=== PATIENT | female | born 1930 | race Caucasian/White ===

== ENCOUNTER 2017-10-27 15:35 | Inpatient (IN) | payer MEDICAID, MEDICARE ==
[~2017-10-27] VITALS: Ht 154.9 cm; Wt 59.0 kg
[2017-10-27] VITALS (10 sets, daily range): BP systolic 59–163; BP diastolic 12–84
--- NOTE | 2017-10-27 15:39 | NUR ---
BBRA 60 FROM [facility] FOR LOW O2 SAT AT LOW 80'S. BS IN FIELD HI
[2017-10-27] MEDS ORDERED: IV NS 0.9% 1,000 ML IV ONE (16:00)
[2017-10-27] MEDS ORDERED: IV NS 0.9% 1,000 ML BAG IV ONE (16:00)
[2017-10-27] MEDS ORDERED: BISA10SU8 RC (16:02)
[2017-10-27] MEDS ORDERED: MULT-447 PO (16:02)
[2017-10-27] MEDS ORDERED: LORA0.5T PO (16:02)
[2017-10-27] MEDS ORDERED: ACET-868 PO (16:02)
[2017-10-27] MEDS ORDERED: OLAN5TAB3 PO (16:02)
[2017-10-27] MEDS ORDERED: METF850T2 PO (16:02)
[2017-10-27] MEDS ORDERED: ATOR10TA PO (16:02)
[2017-10-27] MEDS ORDERED: NA P133E RC (16:02)
[2017-10-27] MEDS ORDERED: ASPI-1169 PO (16:02)
[2017-10-27] MEDS ORDERED: LEVO100T9 PO (16:02)
[2017-10-27] MEDS ORDERED: PANT40TA2 PO (16:02)
[2017-10-27] MEDS ORDERED: MAGN400O6 PO (16:02)
[2017-10-27] MEDS ORDERED: AMIN30LI4 PO (16:02)
[2017-10-27] MEDS ORDERED: ACET-2605 PO (16:02)
[2017-10-27 16:08] LABS: INR 1.2 (0.87-1.13)
[2017-10-27 16:20] LABS: HEMATOCRIT 27 % (33-45); HEMOGLOBIN 8.5 g/dL (11.5-14.8); LYMPHOCYTES # (AUTO) 1.1 /CMM (0.8-4.8); MEAN CORPUSCULAR HEMOGLOBIN 24 PG (26.0-33.0); MEAN CORPUSCULAR HGB CONC 32 g/dl (31.0-36.0); MEAN CORPUSCULAR VOLUME 76 fL (82-100); MONOCYTES # (AUTO) 0.5 /CMM (0.1-1.30); MONOCYTES % (AUTO) 1.8 % (2.0-12.0); NEUTROPHILS # (AUTO) 26.4 /CMM (1.8-8.9); NEUTROPHILS % (AUTO) 94.2 % (43.0-81.0); PLATELET COUNT (AUTO) 521 /CMM (150-450); RDW COEFFICIENT OF VARIATION 15.4 (11.5-15.0); RED BLOOD CELL COUNT(AUTO) 3.52 MIL/uL (4.0-5.2)
[2017-10-27 16:26] LABS: ALANINE AMINOTRANSFERASE 25 U/L (12-78); ALBUMIN 1.6 g/dL (3.4-5.0); ALKALINE PHOSPHATASE 130 U/L (46-116); ASPARTATE AMINOTRANSFERASE 53 U/L (15-37); BILIRUBIN,DIRECT 0.1 mg/dL (0.0-0.2); BILIRUBIN,TOTAL 0.2 mg/dL (0.2-1.0); CALCIUM, SERUM 9.1 mg/dL (8.5-10.1); CARBON DIOXIDE 20 mmol/L (21-32); CHLORIDE 107 mmol/L (98-107); CREATININE 1.4 mg/dL (0.6-1.3); POTASSIUM 5.6 mmol/L (3.5-5.1); SODIUM SERUM 138 mmol/L (136-145); TOTAL PROTEIN, SERUM 7.7 g/dL (6.4-8.2); UREA NITROGEN, BLOOD 73 mg/dL (7-18)
[2017-10-27 16:28] LABS: GLUCOSE 457 mg/dL (74-106)
[2017-10-27] MEDS ORDERED: ASPIRIN 300 MG/SUPP.RECT RC ONE ×2 (16:30→16:59)
[2017-10-27] MEDS ORDERED: LEVOFLOXACIN 750 MG /D5W 150ML PIGGYBACK IV ONE (16:30)
[2017-10-27] MEDS ORDERED: VANCOMYCIN 1 GM in IV D5W 250 ML IV ONE (16:30)
--- NOTE | 2017-10-27 16:36 | NUR ---
BIPAP 15/5 FIO2 50 %
--- NOTE | 2017-10-27 16:40 | NUR ---
DANIELS CATH FR [address] STRANGE
--- NOTE | 2017-10-27 16:40 | NUR ---
URINE SAMPLE COLLECTED SENT TO LAB
[2017-10-27 16:54] LABS: APPEARANCE,URINE Cloudy (CLEAR); BILIRUBIN,URINE Negative (NEGATIVE); BLOOD, URINE Small Ery/uL (NEGATIVE); COLOR,URINE Yellow (YELLOW); KETONES,URINE Negative (NEGATIVE); LEUKOCYTE ESTERASE ,URINE Negative (NEGATIVE); NITRITE, URINE Negative (NEGATIVE); PROTEIN,URINE 30 mg/dl (NEGATIVE); UGLUCOSE Negative (NEGATIVE); UROBILINOGEN,URINE 0.2 EU/dL (0.2)
[2017-10-27 16:57] LABS: BACTERIA,URINE Rare /HPF (None Seen); SQUAMOUS EPITHELIAL CELL,UR Few /HPF (None Seen); WBC,URINE 0-2 /HPF (0-3)
[2017-10-27] MEDS ORDERED: LEVOFLOXACIN 750 MG /D5W 150ML 150 ML IV ONE (16:58)
--- NOTE | 2017-10-27 17:00 | NUR ---
BED 114-2
--- NOTE | 2017-10-27 17:19 | NUR ---
rt note pt brought in by EMS on 15lpm non rebreather. pt had notable increased WOB. pt placed on bipap per dr torrez order. on Bipap, pt appears to be comfortable at this time. will continue to monitor. alarms are set per policy and audible.
--- NOTE | 2017-10-27 17:49 | NUR ---
gave report to dioni bustillo tele room 114-2 admitting dx sob pna greg blue np
[2017-10-27 17:50] LABS: BAND % (MANUAL) 2 % (0.0-5.0); LYMPHOCYTES % (MANUAL) 3 % (16-48); MONOCYTES % (MANUAL) 1 % (0-11.0); NEUTROPHILS % (MANUAL) 94 (42-76)
[2017-10-27] MEDS ORDERED: ALBUTEROL FS 2.5 MG/0.5 ML VIAL.NEB NEB ONE (18:00)
[2017-10-27] MEDS ORDERED: ACETAMINOPHEN 650 MG/SUPP.RECT RC PRN (18:00)
[2017-10-27] MEDS ORDERED: DEXTROSE 50%-WATER 50 ML DISP.SYRIN IV PRN (18:00)
[2017-10-27] MEDS ORDERED: PIPERACILLIN /TAZOBACTAM 3.375 G in IV D5W 50 ML IV SCH (18:00)
[2017-10-27 18:33] LABS: MAGNESIUM 1.4 mg/dL (1.8-2.4); PHOSPHORUS 3.8 mg/dL (2.5-4.9)
--- NOTE | 2017-10-27 18:38 | NUR ---
GAVE REPORT TO NICOLÁS RN ROOM 261 ICU ADMITTING DANDRE ZAYAS DX SEPTIC SHOCK
[2017-10-27] MEDS ORDERED: FEE PK DOSING 1 MIN EA MC ONE (18:49)
--- NOTE | 2017-10-27 19:05 | NUR ---
ICU/RN: RECEIVED PT FROM ER. RECEIVED REPORT FROM GAYE YOUNG. PT TRANSPORTED VIA GURNEY, ON BIPAP WITH SETTINGS ORDERED,MAINTAINING 02 SAT >95%. PT CONFUSED, FOLLOWING SIMPLE COMMANDS. PIV'S PATENT AND INTACT, NO S/S OF INFECTION OR INFILTRATION INFUSING. DANIELS CATH IN PLACE, DRAINING YELLOW URINE. REPORT ENDORSED TO NIGHT NURSE FABY. BED IN LOW POSITION, SIDE RAILS UP, CALL LIGHT WITHIN REACH, BED ALARM ON.
[2017-10-27 19:40] LABS: ABG BASE EXCESS -8.2 mmol/L; ABG OXYGEN SATURATION 94.6 % (92.0-98.5); ABG PCO2 30.5 mmHg (35.0-45.0); ABG PH 7.352 (7.350-7.450); ABG PO2 80.1 mmHg (75.0-100.0); AaDO2 242.1 mmHg; COHb 2.1 % (0.5-1.5); MetHb 0.3 % (0.0-1.5); O2Hb 92.3 % (94.0-97.0); SITE, ABG Left Radial; VENT MODE, BG Bipap 15/5 50% BR 12
[2017-10-27] MEDS: BLOOD SUGAR DIAGNOSTIC 1 EACH STRIP IN SCH (19:59)
[2017-10-27] MEDS: INSULIN REGULAR, HUMAN 100 UNIT/ML 3 ML VIAL SQ PRN (20:07)
[2017-10-27] MEDS: HEPARIN SODIUM, PORCINE 5000 UNITS/1 ML VIAL SQ SCH (20:34)
[2017-10-27] MEDS: MORPHINE SULFATE INJ 4 MG/ML DISP.SYRIN IV PRN (20:44)
[2017-10-27] MEDS: IV NS 0.9% 1,000 ML IV PRN (21:00)
--- NOTE | 2017-10-27 21:35 | NUR ---
PT RCVD ON BIPAP 15/5, RATE OF 12, 50% VENT ALARM WORKING AND AUDIBLE, VENT PLUGGED INTO RED OUTLET. AMBU BAG AT BEDSIDE. WILL CONTINUE TO MONITOR THE PATIENT.
[2017-10-28] VITALS (37 sets, daily range): BP systolic 100–144; BP diastolic 40–98
[2017-10-28 00:43] LABS: CARBON DIOXIDE 20 mmol/L (21-32); CHLORIDE 114 mmol/L (98-107); GLUCOSE 172 mg/dL (74-106); POTASSIUM 5.6 mmol/L (3.5-5.1); SODIUM SERUM 144 mmol/L (136-145); UREA NITROGEN, BLOOD 55 mg/dL (7-18)
[2017-10-28] MEDS: BLOOD SUGAR DIAGNOSTIC 1 EACH STRIP IN SCH ×5 (00:54→23:40)
[2017-10-28] MEDS: INSULIN REGULAR, HUMAN 100 UNIT/ML 3 ML VIAL SQ PRN ×5 (00:56→23:41)
--- NOTE | 2017-10-28 06:49 | NUR ---
RN NOTE RECEIVED PT IN NO ACUTE DISTRESS IN BED. PT REMAINS IN NO ACUTE DISTRESS. PT DID NOT HAVE ANY SIGNIFICANT CHANGE IN CONDITION DURING SHIFT. ALL NEEDS MET, ALL ORDERS CARRIED OUT. IV SITE CHANGED TO LEFT EJ AND NS CONTINUED @ 75ML/HR. PT MONITORED FOR FLUID OVERLOAD. NO CHANGES. PT TOLERATED BIPAP WITH O2 SAT @ 95-99%. PT SHOWS NO S/S OF PAIN AT THIS TIME AND IS AFEBRILE. WILL ENDORSE CARE TO AM RN FOR CONTINUITY OF CARE.
--- NOTE | 2017-10-28 07:10 | NUR ---
INVOICING SPECIALIST INITIAL NOTES: REC'D PT ASLEEP ON BED, NOT IN ANY DISTRESS, AWAKES BY CALLING HER NAME, A/O X 1-2 W/ PERIODS ON CONFUSION. ON BIPAP, SATURATING AT 99%, TACHYPNEIC. ON TELEMONITOR, SR W/ HR 96 BPM. HAS IV ON L EJ G20, PL, PATENT & INTACT W/ NO S/SX OF INFECTION/INFILTRATION NOTED, ON CONT IVF . HAS FC PATENT & INTACT DRAINING TO ADEQUATE URINE OUTPUT. PROVIDED COMFORT & SAFETY MEASURES. BED KEPT LOW & IN LOCKED POS. CALL LIGHT PLACED W/IN REACH. WILL CONTINUE TO MONITOR AND ATTEND PT'S NEEDS.
[2017-10-28] MEDS: ASPIRIN 325 MG TABLET PO SCH (09:00)
[2017-10-28 09:12] LABS: BASOPHILS % (AUTO) 0.1 % (0.0-2.0); HEMATOCRIT 24 % (33-45); HEMOGLOBIN 7.5 g/dL (11.5-14.8); LYMPHOCYTES # (AUTO) 1.2 /CMM (0.8-4.8); LYMPHOCYTES % (AUTO) 6.2 % (20.0-44.0); MEAN CORPUSCULAR HEMOGLOBIN 25 PG (26.0-33.0); MEAN CORPUSCULAR HGB CONC 32 g/dl (31.0-36.0); MEAN CORPUSCULAR VOLUME 77 fL (82-100); MONOCYTES % (AUTO) 4.9 % (2.0-12.0); NEUTROPHILS # (AUTO) 17.6 /CMM (1.8-8.9); NEUTROPHILS % (AUTO) 88.8 % (43.0-81.0); PLATELET COUNT (AUTO) 406 /CMM (150-450); RDW COEFFICIENT OF VARIATION 15.4 (11.5-15.0); RED BLOOD CELL COUNT(AUTO) 3.05 MIL/uL (4.0-5.2); WHITE BLOOD COUNT (AUTO) 19.8 K/uL (4.3-11.0)
[2017-10-28] MEDS: HEPARIN SODIUM, PORCINE 5000 UNITS/1 ML VIAL SQ SCH ×2 (09:14→20:44)
[2017-10-28] MEDS: IV NS 0.9% 1,000 ML IV PRN (10:30)
--- NOTE | 2017-10-28 10:48 | NUR ---
RN NOTES: PT SEEN & EXAMINED BY DR. NASH W/ NO NEW ORDERS. ABG RESULTS REVIEWED.
[2017-10-28 11:32] LABS: MAGNESIUM 1.3 mg/dL (1.8-2.4); PHOSPHORUS 2.7 mg/dL (2.5-4.9)
--- NOTE | 2017-10-28 11:35 | NUR ---
GAYE NOTES: PT SEEN & EXAMINED BY CHANA AMOS.
[2017-10-28] MEDS ORDERED: DEXTROSE 50%-WATER 50 ML DISP.SYRIN IVP ONE (12:00)
[2017-10-28] MEDS ORDERED: Calcium Gluconate 0.465 MEQ/ML VIAL IV ONE (12:00)
[2017-10-28] MEDS ORDERED: INSULIN REGULAR, HUMAN 100 UNIT/ML 3 ML VIAL SQ ONE (12:00)
[2017-10-28] MEDS ORDERED: Calcium Gluconate 1GM/10ML 4.65 MEQ in IV D5W 50 ML IV ONE (12:30)
[2017-10-28] MEDS ORDERED: methylPREDNISolone SOD SUCC 125 MG/2ML VIAL IV SCH (13:00)
[2017-10-28] MEDS ORDERED: Z GUARD REMEDY 4 OZ OINT TP PRN (16:30)
[2017-10-28] MEDS: LEVOFLOXACIN 750 MG /D5W 150ML 750 MG in PREMIX 1 EA IV SCH (16:34)
[2017-10-28] MEDS: methylPREDNISolone SOD SUCC 125 MG/2ML VIAL IV SCH (16:35)
--- NOTE | 2017-10-28 17:12 | NUR ---
RN NOTES: RELAYED MG 1.3 TO CHANA AMOS W/ ORDERS TO GIVE 4 G MG IV.
[2017-10-28] MEDS: VANCOMYCIN 0.75 GM in IV D5W 250 ML IV SCH (17:17)
[2017-10-28] MEDS ORDERED: Magnesium 1GM/D5W 100ML PREMIX PIGGYBACK IV ONE (17:30)
[2017-10-28] MEDS: Magnesium 1GM/D5W 100ML PREMIX 100 ML IV SCH ×4 (18:19→22:25)
--- NOTE | 2017-10-28 18:45 | NUR ---
CEMENT SACK BREAKER CLOSING NOTES: NO ACUTE CHANGES NOTED W/IN SHIFT. STILL ON BIPAP, SATURATING AT 99%, TACHYPNEIC. ON TELEMONITOR, STILL SR. IV LINE ACCESS ON L EJ G20 AND RFA G20, KEPT PATENT & INTACT W/ NO S/SX OF INFECTION/INFILTRATION NOTED. RFA G20 ON CONT IVF NS X 75 CC/HR INFUSING WELL. FC KEPT PATENT & INTACT. KEPT WELL RESTED. NEEDS ATTENDED. BED KEPT LOW & IN LOCKED POS. CALL LIGHT PLACED W/IN REACH. WILL ENDORSE TO PM RN FOR ANDREY.
[2017-10-28] MEDS ORDERED: MEROPENEM 500 MG VIAL IV ONE (22:29)
[2017-10-28] MEDS: MEROPENEM 500 MG in IV NS 0.9% 50 ML IV SCH (22:29)
[2017-10-29] VITALS (34 sets, daily range): BP systolic 115–165; BP diastolic 47–103
[2017-10-29] MEDS ORDERED: MEROPENEM 500 MG VIAL IV ONE (04:26)
[2017-10-29] MEDS: MEROPENEM 500 MG in IV NS 0.9% 50 ML IV SCH ×2 (04:29→17:03)
--- NOTE | 2017-10-29 05:18 | NUR ---
RT PT RECEIVED ON BIPAP WITH NOTED SETTING. PT TOLERATED BIPAP WELL. NO SOB OR RESP DISTRESS NOTED ON SHIFT. TITRATED FIO2 REQUIRED, RN MADE AWARE OF CHANGES. WILL PASS ON FOLLOWING RT. Addendum: 10/29/17 at 0519 by LORENA SANDOVAL RT Amended: Links added.
[2017-10-29 05:37] LABS: HEMATOCRIT 24 % (33-45); HEMOGLOBIN 7.6 g/dL (11.5-14.8); LYMPHOCYTES # (AUTO) 0.8 /CMM (0.8-4.8); LYMPHOCYTES % (AUTO) 4.7 % (20.0-44.0); MEAN CORPUSCULAR HEMOGLOBIN 25 PG (26.0-33.0); MEAN CORPUSCULAR HGB CONC 32 g/dl (31.0-36.0); MEAN CORPUSCULAR VOLUME 78 fL (82-100); MONOCYTES # (AUTO) 0.3 /CMM (0.1-1.30); MONOCYTES % (AUTO) 1.7 % (2.0-12.0); NEUTROPHILS # (AUTO) 15.7 /CMM (1.8-8.9); NEUTROPHILS % (AUTO) 93.6 % (43.0-81.0); PLATELET COUNT (AUTO) 432 /CMM (150-450); RDW COEFFICIENT OF VARIATION 15.9 (11.5-15.0); RED BLOOD CELL COUNT(AUTO) 3.09 MIL/uL (4.0-5.2); WHITE BLOOD COUNT (AUTO) 16.8 K/uL (4.3-11.0)
[2017-10-29] MEDS: BLOOD SUGAR DIAGNOSTIC 1 EACH STRIP IN SCH ×3 (05:43→17:08)
[2017-10-29] MEDS: INSULIN REGULAR, HUMAN 100 UNIT/ML 3 ML VIAL SQ PRN ×3 (05:48→17:07)
[2017-10-29 05:53] LABS: CALCIUM, SERUM 9.7 mg/dL (8.5-10.1); CARBON DIOXIDE 23 mmol/L (21-32); CHLORIDE 115 mmol/L (98-107); CREATININE 0.9 mg/dL (0.6-1.3); GLUCOSE 341 mg/dL (74-106); MAGNESIUM 2.6 mg/dL (1.8-2.4); PHOSPHORUS 2.9 mg/dL (2.5-4.9); POTASSIUM 5.2 mmol/L (3.5-5.1); SODIUM SERUM 144 mmol/L (136-145); UREA NITROGEN, BLOOD 34 mg/dL (7-18)
--- NOTE | 2017-10-29 06:33 | NUR ---
RN NOTE RECEIVED PT IN NO ACUTE DISTRESS IN BED. PT REMAINS IN NO ACUTE DISTRESS. PT DID NOT HAVE ANY SIGNIFICANT CHANGE IN CONDITION DURING SHIFT. ALL NEEDS MET, ALL ORDERS CARRIED OUT. PT HAS LEFT EJ THAT IS CLEAN DRY INTACT AND PATENT AND RIGHT FA 20G THAT IS CLEAN DRY INTACT AND PATENT WITH NS @ 75ML/HR. PT MONITORED FOR FLUID OVERLOAD. NO CHANGES. PT TOLERATED BIPAP WITH O2 SAT @ 95-99%. BIPAP FIO2 DECREASED FROM 50% TO 40% AND PT TOLERATING WELL WITH O2 SAT @ 95-97%. PT SHOWS NO S/S OF PAIN AT THIS TIME AND IS AFEBRILE. WILL ENDORSE CARE TO AM RN FOR CONTINUITY OF CARE.
[2017-10-29] MEDS: IV NS 0.9% 1,000 ML IV PRN ×2 (06:46→15:43)
--- NOTE | 2017-10-29 07:00 | NUR ---
RN NOTES: RECEIVED PT ON BED, A/Ox1, RESPOND TO HER NAME WITH PERIODS OF CONFUSION , ON BIPAP WITH FIO2 AT 40%, O2 SAT 97%. NO DISTRESS NOTED AT THIS TIME, ON TELE, SR HR IN 90'S AT THIS TIME , DANIELS DRAINING TO GRAVITY WITH ADEQUATE URINE OUTPUT , L EJ IV AND R FA IV SITES CDI, , IVF NS AT 75CC/HR RUNNING VIA R FA , SR UP x3, CALL LIGHT WITHIN EASY REACH, BED LOCKED AND IN LOWEST POSITION , WILL CONTINUE TO MONITOR PT CLOSELY.
[2017-10-29] MEDS: methylPREDNISolone SOD SUCC 125 MG/2ML VIAL IV SCH ×2 (08:05→17:04)
[2017-10-29] MEDS: HEPARIN SODIUM, PORCINE 5000 UNITS/1 ML VIAL SQ SCH ×2 (08:06→20:16)
[2017-10-29] MEDS: ASPIRIN 325 MG TABLET PO SCH (08:06)
[2017-10-29 08:26] LABS: IRON, SERUM 17 ug/dl (50-175); TOTAL IRON BINDING CAPACITY 99 ug/dl (250-450)
[2017-10-29 08:40] LABS: FERRITIN 844 ng/mL (8-388)
--- NOTE | 2017-10-29 09:00 | NUR ---
RN NOTES PT OFF OF BIPAP, ON O2 4L N/C , O2 SAT 96-98%, ORAL SUCTIONING AND MOUTH CARE DONE , TOLERATING WELL, CONTINUE TO MONITOR .
[2017-10-29] MEDS: MORPHINE SULFATE INJ 4 MG/ML DISP.SYRIN IV PRN ×2 (11:10→15:56)
[2017-10-29] MEDS: ACETYLCYSTEINE 10% SOLN 400 MG/4 ML VIAL NEB SCH ×3 (12:30→23:14)
[2017-10-29] MEDS: LORAZEPAM INJ 2 MG/ML VIAL IV PRN (12:33)
--- NOTE | 2017-10-29 13:00 | NUR ---
RN NOTES SLIGHT SWELLING NOTED ON R ARM IV SITE, NEW IV SITE STARTED ON L FOREARM G 22.
--- NOTE | 2017-10-29 13:40 | NUR ---
RN NOTES PT PULLED L ARM IV SITE OUT .
--- NOTE | 2017-10-29 13:41 | NUR ---
RN NOTES PT KEEP PUTTING ON HER IV LINE AND TAKES HER O2 OFF, WAYLON SENIOR STEREO COMPILER TEAM LEAD NOTIFIED , SOFT WRIST RESTRAIN APPLIED FOR PT SAFETY, CONTINUE TO MONITOR .
--- NOTE | 2017-10-29 15:00 | NUR ---
RN NOTES WAYLON CARDING UTILITY TENDER NOTIFIED REGARDING MED RECON THAT NEEDS TO BE DONE ,
[2017-10-29] MEDS ORDERED: FUROSEMIDE 20 MG/2 ML VIAL IV ONE (18:30)
[2017-10-29] MEDS ORDERED: QUETIAPINE FUMARATE 25 MG TABLET PO ONE (18:30)
--- NOTE | 2017-10-29 18:45 | NUR ---
RN NOTES PT TOLERATING O2 ON 4 L N/C WELL, NO RESPIRATORY DISTRESS NOTE, PT SCREAMS AT TIMES , BISHOP PAIN , WAYLON SOFTWARE ENGINEER WEB APPLICATIONS NOTIFIED REGARDING U/O OF 300 FOR THE 12 HOURS SHIFT AND BP= 165/69, , NEW ORDER GIVEN TO CONTINUE IVF AT 125CC/HR AND GIVE LASIX 20 MG IV x1, SR UP x3. CALL LIGHTS WITHIN EASY REACH, BED LOCKED AND IN LOWEST POSITION , PT STILL TRIES TO PULL ON HER LINES , WILL ENDORSE TO HEALTH INFORMATION MANAGERS NURSE FOR ANDREY.
[2017-10-29] MEDS: VANCOMYCIN 0.75 GM in IV D5W 250 ML IV SCH (18:51)
--- NOTE | 2017-10-29 20:00 | NUR ---
REGIONAL TRAINING MANAGER - NOTES - RECEIVED PT IN NO ACUTE DISTRESS IN BED. PT HAS LEFT EJ THAT IS CLEAN DRY INTACT AND PATENT AND RIGHT FA 20G THAT IS CLEAN DRY INTACT AND PATENT WITH NS @ 125ML/HR. PT MONITORED FOR FLUID OVERLOAD. NO CHANGES. PT TOLERATING 4L NC WITH O2 SAT @ >95%. PT SHOWS NO S/S OF PAIN AT THIS TIME AND IS AFEBRILE. WILL ENDORSE CARE TO AM RN FOR CONTINUITY OF CARE.
[2017-10-29] MEDS: MUPIROCIN OINT 2% 22 GM TUBE SCH (20:14)
[2017-10-29] MEDS: IPRATROPIUM NEB FS 0.5 MG/2.5 ML AMPUL.NEB NEB PRN (23:14)
[2017-10-29] MEDS: ALBUTEROL FS 2.5 MG/0.5 ML VIAL.NEB NEB PRN (23:14)
[2017-10-30] VITALS (29 sets, daily range): BP systolic 124–168; BP diastolic 50–89
[2017-10-30] MEDS: INSULIN REGULAR, HUMAN 100 UNIT/ML 3 ML VIAL SQ PRN ×5 (00:18→23:57)
[2017-10-30] MEDS: BLOOD SUGAR DIAGNOSTIC 1 EACH STRIP IN SCH ×5 (00:21→23:55)
[2017-10-30] MEDS: IV NS 0.9% 1,000 ML IV PRN ×2 (02:16→11:08)
[2017-10-30 04:50] LABS: HEMATOCRIT 22 % (33-45); HEMOGLOBIN 7.1 g/dL (11.5-14.8); LYMPHOCYTES # (AUTO) 0.9 /CMM (0.8-4.8); LYMPHOCYTES % (AUTO) 7.3 % (20.0-44.0); MEAN CORPUSCULAR HEMOGLOBIN 24 PG (26.0-33.0); MEAN CORPUSCULAR HGB CONC 32 g/dl (31.0-36.0); MEAN CORPUSCULAR VOLUME 77 fL (82-100); MONOCYTES # (AUTO) 0.5 /CMM (0.1-1.30); MONOCYTES % (AUTO) 3.8 % (2.0-12.0); NEUTROPHILS # (AUTO) 10.6 /CMM (1.8-8.9); NEUTROPHILS % (AUTO) 88.9 % (43.0-81.0); PLATELET COUNT (AUTO) 392 /CMM (150-450); RDW COEFFICIENT OF VARIATION 15.8 (11.5-15.0); RED BLOOD CELL COUNT(AUTO) 2.92 MIL/uL (4.0-5.2); WHITE BLOOD COUNT (AUTO) 11.9 K/uL (4.3-11.0)
[2017-10-30 05:13] LABS: ALANINE AMINOTRANSFERASE 16 U/L (12-78); ALKALINE PHOSPHATASE 86 U/L (46-116); ASPARTATE AMINOTRANSFERASE 13 U/L (15-37); BILIRUBIN,TOTAL 0.1 mg/dL (0.2-1.0); CALCIUM, SERUM 9.7 mg/dL (8.5-10.1); CARBON DIOXIDE 23 mmol/L (21-32); CHLORIDE 117 mmol/L (98-107); CREATININE 0.9 mg/dL (0.6-1.3); GLUCOSE 342 mg/dL (74-106); MAGNESIUM 1.9 mg/dL (1.8-2.4); PHOSPHORUS 3.7 mg/dL (2.5-4.9); POTASSIUM 4.8 mmol/L (3.5-5.1); SODIUM SERUM 148 mmol/L (136-145); TOTAL PROTEIN, SERUM 6.2 g/dL (6.4-8.2); UREA NITROGEN, BLOOD 39 mg/dL (7-18)
[2017-10-30 05:27] LABS: ALBUMIN 1.4 g/dL (3.4-5.0); TROPONIN I 0.644 ng/mL (0.00-0.056)
[2017-10-30] MEDS: MEROPENEM 500 MG in IV NS 0.9% 50 ML IV SCH ×2 (05:51→17:11)
--- NOTE | 2017-10-30 07:26 | NUR ---
RN NOTES RECEIVED PT ON BED, PT RESPONDS TO HER NAME, A/Ox1, ON 4L O2 N/C , RESPIRATION EVEN AND UNLABORED, O2 SAT 94%, NO SOB NOTED, ON TELE SR HR IN 80'S , SLIGHT SWELLING NOTED ON R FA IV SITE, IV SITE D/RADHA, AND ARM ELEVATED ON A PILLOW , LEFT EJ IV SITE CDI, NS @ 125ML/HR SWITCHED TO L EJ LINE , VSS STABLE , SR UP x3, BED LOCKED AND IN LOWEST POSITION , CONTINUE TO MONITOR PT CLOSELY ,
[2017-10-30] MEDS: ACETYLCYSTEINE 10% SOLN 400 MG/4 ML VIAL NEB SCH ×3 (07:56→23:34)
[2017-10-30] MEDS: ASPIRIN 325 MG TABLET PO SCH (08:10)
[2017-10-30] MEDS: HEPARIN SODIUM, PORCINE 5000 UNITS/1 ML VIAL SQ SCH ×2 (08:11→21:00)
[2017-10-30] MEDS: methylPREDNISolone SOD SUCC 125 MG/2ML VIAL IV SCH ×2 (08:11→17:01)
[2017-10-30] MEDS: MUPIROCIN OINT 2% 22 GM TUBE SCH ×2 (08:13→22:14)
[2017-10-30] MEDS ORDERED: FUROSEMIDE 20 MG/2 ML VIAL IV ONE (11:30)
--- NOTE | 2017-10-30 12:00 | NUR ---
RN NOTES PT STABLE, ENCOURAGED DEEP AND SLOW BREATHING . AWAITING FOR A BED TO BE TRANSFER TO MED-SURG FLOOR PER MD ORDER .
[2017-10-30] MEDS ORDERED: NEUTRA PHOS 1 POWD.PACKET NG ONE (12:30)
[2017-10-30] MEDS: LORAZEPAM INJ 2 MG/ML VIAL IV PRN (13:47)
[2017-10-30] MEDS: BOOST GLUCOSE CONTROL VANILLA 237 ML BOX PO SCH ×2 (13:48→17:11)
[2017-10-30] MEDS: LEVOFLOXACIN 750 MG /D5W 150ML 750 MG in PREMIX 1 EA IV SCH (15:49)
--- NOTE | 2017-10-30 17:00 | NUR ---
RN NOTES PT IS MOUTH BREATHER , ON 4L O2 N/C O2 SAT IS 82%, PT PLACED ON FACE MASK AT 6L O2 , O2 SAT IS 92% ON FACE MASK .
[2017-10-30] MEDS: LACTOBACILLUS RHAMNOSUS GG 1 EACH CAP.SPRINK PO SCH (17:01)
--- NOTE | 2017-10-30 18:32 | NUR ---
RN NOTES O2 SAT 93%, L EJ IV SITE CDI, SR UP x3, CALL LIGHTS WITHIN EASY REACH, BED LOCKED AND IN LOWEST POSITION, WILL ENDORSE TO EMPLOYEE COMMUNICATIONS COORDINATOR NURSE FOR ANDREY.
[2017-10-30] MEDS: VANCOMYCIN 0.75 GM in IV D5W 250 ML IV SCH (18:39)
--- NOTE | 2017-10-30 19:30 | NUR ---
OPENING MS RN NOTES RECEIVED PT FROM ICU WITH 2 RN'S PT IN BED ON 7LPM 02 SAT TO 93%, PATIENT CONFUSED, RESPONSIVE TO TOUCH AND TACTILE STIMULATION, ON CONTACT ISOLATION, SAFETY MEASURES IN PLACE. WILL CONTINUE TO MONITOR Addendum: 10/31/17 at 0244 by BELINDA DRIVER RN PT ON SIMPLE MASK WHEN ARRIVED FROM ICU
--- NOTE | 2017-10-30 19:32 | NUR ---
INTERIOR PANELER NOTE Patient for transfer to med surg unit.Report given to Bianka .Patient stable,asleep,
--- NOTE | 2017-10-30 20:08 | NUR ---
PAGED ROOFING TILE SORTER SPOKE TO DR. TRACIE [place] RELAYED PT DECREASING 02 SAT 89'S ON 7LPM VIA SIMPLE MASK, PT DNR/DNI. PT WAS PUT NOW ON 10 L SIMPLE MASK PT 02 SAT ON 96%. PER YANELY HODGES CONTINUE TO MONITOR PT 02 SAT NO NEED TO TRANSFER DIFFERENT UNIT. CALLED RT TO SUCTION PT. HOB ELEVATED AT ALL TIMES.
--- NOTE | 2017-10-30 20:09 | NUR ---
PER YANELY HODGES OK TO PUT PT ON 10 L SIMPLE MASK NOTED AND CARRIED OUT
--- NOTE | 2017-10-30 21:50 | NUR ---
SPOKE TO DR. YANELY HODGES RELAYED IF WE COULD HOLD FOR CARLOS'S HEPARIN 5,000 UNITS DOSE, RELAYED LATEST HGB. PER DR. NY HOLD FOR CARLOS NOTED AND CARRIED OUT
--- NOTE | 2017-10-30 22:30 | NUR ---
PAGED DR. YANELY HODGES SPOKE TO HIM RELAYED THAT PT KEPT ON REMOVING HER O2 SIMPLE MASK AND TRYING TO REMOVE HER IV LINES DESPITE EXPLAINING RISKS AND BENEFITS TO THE PT , PT CONFUSED PER YANELY HODGES ORDERED SOFT BILATERAL WRIST RESTRAINT NOTED AND CARRIED OUT
[2017-10-30] MEDS: ALBUTEROL FS 2.5 MG/0.5 ML VIAL.NEB NEB PRN (23:34)
--- NOTE | 2017-10-31 00:03 | NUR ---
BLOOD SUGAR CHECKED: 537 MG/DL PAGED DR. YANELY HODGES RELAYED LAB NO ORDERS AT THIS TIME
--- NOTE | 2017-10-31 01:12 | NUR ---
MS RN NOTES SPOKE TO DR. YANELY HODGES AGAIN AND DR. YANELY HODGES ORDERED GIVE EXTRA 10 UNITS OF HUMULIN R INSULIN AND THEN INCREASE SLIDING SCALE TO AGGRESSIVE Q4 HOURS READ BACK AND VERIFIED NOTED AND CARRIED OUT
[2017-10-31] MEDS ORDERED: DEXTROSE 50%-WATER 50 ML DISP.SYRIN IV PRN (01:30)
[2017-10-31] MEDS ORDERED: INSULIN REGULAR, HUMAN 100 UNIT/ML 3 ML VIAL SQ SCH (01:30)
[2017-10-31] MEDS ORDERED: INSULIN REGULAR, HUMAN 100 UNIT/ML 10 ML VIAL SQ ONE (01:30)
[2017-10-31] MEDS: LORAZEPAM INJ 2 MG/ML VIAL IV PRN (03:31)
[2017-10-31] MEDS: MEROPENEM 500 MG in IV NS 0.9% 50 ML IV SCH ×2 (04:34→18:48)
[2017-10-31] MEDS: BLOOD SUGAR DIAGNOSTIC 1 EACH STRIP IN SCH ×5 (04:34→22:52)
[2017-10-31] MEDS: INSULIN REGULAR, HUMAN 100 UNIT/ML 3 ML VIAL SQ PRN ×5 (04:38→22:59)
--- NOTE | 2017-10-31 06:33 | NUR ---
MS RN CLOSING NOTES PT COMFORTABLY ASLEEP AND EASILY AWAKEN, RESPONSIVE TO TACTILE STIMULATION AND VERBAL. PT BACK ON 6L VIA SIMPLE MASK 02 SAT AT 100% IN STABLE CONDITION. RESPIRATION EVEN AND UNLABORED. KEPT CLEAN AND DRY AND COMFORTABLE, ALL NURSING CARE RENDERED. NEEDS ATTENDED AND ANTICIPATED, FREQUENT VISUAL CHECK DONE FOR SAFETY EVERY 2 HOURS. GOOD SKIN CARE PROVIDED. STRICTLY REPOSITIONED PT Q2H. ON LOW BED AT ALL TIMES TO ENSURE SAFETY. SAFE HAZARD FREE ENVIRONMENT PROVIDED. CALL LIGHT WITHIN EASY TO REACH. WILL ENDORSE NEXT SHIFT CONTINUITY OF CARE. F/C INTACT DRAINING YELLOW VIA GRAVITY WITH NO SEDIMENTS NO HEMATURIA NO CLOUDINESS
[2017-10-31 06:41] LABS: HEMATOCRIT 24 % (33-45); HEMOGLOBIN 7.9 g/dL (11.5-14.8); LYMPHOCYTES # (AUTO) 0.8 /CMM (0.8-4.8); LYMPHOCYTES % (AUTO) 5.5 % (20.0-44.0); MEAN CORPUSCULAR HEMOGLOBIN 25 PG (26.0-33.0); MEAN CORPUSCULAR HGB CONC 33 g/dl (31.0-36.0); MEAN CORPUSCULAR VOLUME 77 fL (82-100); MONOCYTES # (AUTO) 0.7 /CMM (0.1-1.30); MONOCYTES % (AUTO) 5.2 % (2.0-12.0); NEUTROPHILS # (AUTO) 12.4 /CMM (1.8-8.9); NEUTROPHILS % (AUTO) 89.3 % (43.0-81.0); PLATELET COUNT (AUTO) 432 /CMM (150-450); RDW COEFFICIENT OF VARIATION 15.8 (11.5-15.0); RED BLOOD CELL COUNT(AUTO) 3.14 MIL/uL (4.0-5.2); WHITE BLOOD COUNT (AUTO) 13.9 K/uL (4.3-11.0)
[2017-10-31 07:10] LABS: ALANINE AMINOTRANSFERASE 17 U/L (12-78); ALBUMIN 1.5 g/dL (3.4-5.0); ALKALINE PHOSPHATASE 83 U/L (46-116); ASPARTATE AMINOTRANSFERASE 18 U/L (15-37); BILIRUBIN,TOTAL 0.2 mg/dL (0.2-1.0); CALCIUM, SERUM 9.8 mg/dL (8.5-10.1); CARBON DIOXIDE 24 mmol/L (21-32); CHLORIDE 119 mmol/L (98-107); CREATININE 0.8 mg/dL (0.6-1.3); GLUCOSE 300 mg/dL (74-106); MAGNESIUM 1.6 mg/dL (1.8-2.4); POTASSIUM 4.2 mmol/L (3.5-5.1); SODIUM SERUM 151 mmol/L (136-145); TOTAL PROTEIN, SERUM 6.1 g/dL (6.4-8.2); UREA NITROGEN, BLOOD 43 mg/dL (7-18)
--- NOTE | 2017-10-31 07:36 | NUR ---
informed rp about restraints spoke to eddie robbins, agreed and appreciative to nurses.
[2017-10-31] MEDS: ACETYLCYSTEINE 10% SOLN 400 MG/4 ML VIAL NEB SCH ×2 (07:48→17:50)
[2017-10-31 08:00] VITALS: BP 170/78
--- NOTE | 2017-10-31 08:00 | NUR ---
MS 2 RN NOTES RECEIVED PT ON BED, A/Ox1, ON 10L O2 N/C , RESPIRATION EVEN AND UNLABORED, O2 SAT 90%,PT DESATURATES TO 76-81% WHEN RESTLESS.PT TENDS TO REMOVE O2 SAT AUTOMATIC SENSOR IN HER FINGER AND CHANGED O2 SENSOR TO THE PROBE ADHESIVE ONE AND O2 SAT GOES UP TO 96-100%. LEFT EJ IV SITE CDI,VSS STABLE , SR UP x3, BED LOCKED AND IN LOWEST POSITION ,ON MRSA NARES ISOLATION PRECAUTIONS.WITH DANIELS CATHETER INTACT DRAINING YELLOW URINE WITH SEDIMENTS.FOR ST FOLLOW UP. TURNED EVERY TWO HRS.CONTINUE TO MONITOR PT CLOSELY ,
--- NOTE | 2017-10-31 08:20 | NUR ---
HELD HEPARIN AND ASPIRIN DUE TO LOW HGB OF 7.9.
--- NOTE | 2017-10-31 08:30 | NUR ---
PT ATE 60% BREAKFAST.TOLERATED WELL WITH ASPIRATION PRECAUTIONS.
[2017-10-31] MEDS: HEPARIN SODIUM, PORCINE 5000 UNITS/1 ML VIAL SQ SCH ×2 (09:00→22:10)
[2017-10-31] MEDS: ASPIRIN 325 MG TABLET PO SCH (09:00)
[2017-10-31] MEDS: LACTOBACILLUS RHAMNOSUS GG 1 EACH CAP.SPRINK PO SCH ×2 (09:17→17:00)
[2017-10-31] MEDS: methylPREDNISolone SOD SUCC 125 MG/2ML VIAL IV SCH ×2 (09:18→18:55)
[2017-10-31] MEDS: MUPIROCIN OINT 2% 22 GM TUBE SCH ×2 (09:19→22:11)
[2017-10-31] MEDS: BOOST GLUCOSE CONTROL VANILLA 237 ML BOX PO SCH ×2 (09:27→17:00)
--- NOTE | 2017-10-31 09:30 | NUR ---
SEEN BY DR NASH AND IS AWARE THAT PT DESATURATES TO 78%-83% EVEN WITH O2 AT 10LITERS/MIN VIA MASK.PT IS VERY RESTLESS WITH ADELA SOFT RESTRAINTS ON BECAUSE PT KEEPS REMOVING ALL THE TUBINGS,HEPLOCK AND O2 MASK SEVERAL TIMES.CALLED PT'S DPOA,TENZIN GODFREY FOR DR NASH TO DISCUSS PT'S DETERIORATING CONDITION BUT TENZIN IS IN COURT AT THIS TIME ACCORDING TO THE [employer]WORK ADMINISTRATOR.WILL TRY TO CALL HIM LATER.
[2017-10-31] MEDS: FUROSEMIDE 100 MG/10 ML VIAL IV SCH ×3 (09:32→17:30)
--- NOTE | 2017-10-31 10:08 | NUR ---
PT SLEEPING AT THIS TIME AND HER O2 SAT IS 94% AT REST.WILL CONTINUE TO MONITOR.
[2017-10-31 10:35] VITALS: BP 164/70
[2017-10-31] MEDS: MORPHINE SULFATE INJ 4 MG/ML DISP.SYRIN IV PRN (11:23)
[2017-10-31] MEDS: Magnesium 1GM/D5W 100ML PREMIX 100 ML IV SCH ×2 (11:23→13:22)
--- NOTE | 2017-10-31 11:33 | NUR ---
PT'S O2 SAT WITH O2 MASK IS 100% AT THIS TIME WILL CONTINUE TO MONITOR.
--- NOTE | 2017-10-31 13:00 | NUR ---
SEEN BY SPEECH THERAPIST DAVION AND RECOMMENDED TO PUT PT ON NPO EXCEPT MEDS DUE TO PT'S LETHARGIC CONDITION.DR CABALLERO AWARE WITH NEW ORDERS CARRIED OUT.
[2017-10-31 16:00] VITALS: BP 161/86
--- NOTE | 2017-10-31 16:00 | NUR ---
SPOKE TO PT'S DPOA,MICHAEL AND STATED THAT DR NASH WANTS TO TALK TO HIM REGARDING PT'S DETERIORATING CONDITION.MICHAEL STATED TO PLACE PT ON HOSPICE.NOTIFIED DR NASH AND MADE AWARE AND STATED TO DEFER TO PRIMARY TEAM AND HE AGREES.WILL INFORM DR CABALLERO.
[2017-10-31] MEDS: ALBUTEROL FS 2.5 MG/0.5 ML VIAL.NEB NEB PRN (17:47)
[2017-10-31] MEDS: IPRATROPIUM NEB FS 0.5 MG/2.5 ML AMPUL.NEB NEB PRN (17:47)
[2017-10-31] MEDS ORDERED: IV NS 0.9% 1,000 ML BAG IV PRN (18:00)
[2017-10-31] MEDS ORDERED: FUROSEMIDE 100 MG/10 ML VIAL IV SCH (19:00)
--- NOTE | 2017-10-31 19:30 | NUR ---
EVENT MARKETING MANAGER NOTE, RECEIVED PATIENT AWAKE AND IN BED, NO S/S OR COMPLAINTS OF PAIN AT THIS TIME. PATIENT BREATHING IS UNLABORED WITH EQUAL RISE AND FALL OF THE CHEST. PATIENT IS ALERT AND ORIENTED X 1 ON 15 LITERS OF O2 VIA NON REBREATHER WITH A SPOO2 98%. IVF NS @ 50 ML/HR INFUSING WELL INTO LEFT EJ 20 GAUGE THAT IS INTACT, PATENT, AND FLUSHING WELL WITH NO S/S OF INFILTRATION. PATIENT ASSISTED WITH TURNING AND REPOSITIONING Q2HR AND PRN FOR COMFORT AND CIRCULATION. PATIENT HAS NO NEEDS AT THIS TIME. PATIENT EDUCATED ON THE USE OF THE CALL LIGHT. PATIENT BED SIDE RAILS UP X 2 FOR SAFETY. PATIENT BED IS LOCKED AND LOW WILL CONTINUE TO MONITOR AND MAINTAIN SAFETY WITH THE HELP OF STAFF.
--- NOTE | 2017-10-31 19:45 | NUR ---
ADMINISTERED THE COMPLETED 3 DOSES OF LASIX 80 MG IV BUT THE LAST DOSE OF LASIX 80 MG IV STILL KEEPS APPEARING TO BE ADMINISTERED IN EMAR.TRIED TO GET THE FLU VACCINE FROM THE MED ROOM REF AND "FORCED ENTRY" ALARM KEEPS APPEARING WHILE TRYING TO OPEN THE MED REFRIGERATOR.REPORTED THE INCIDENT TO GOYO,PHARMACIST AND MADE AWARE.
[2017-10-31 20:00] VITALS: BP_SYST 158; BP_SYST 162; BP_DIAS 68
[2017-10-31] MEDS: VANCOMYCIN 1 GM in IV D5W 250 ML IV SCH (21:02)
--- NOTE | 2017-10-31 22:59 | NUR ---
SUPERVISOR TELEVISION CHASSIS REPAIR NOTE, PERFORMED ACCU CHECK ON PATIENT WITH A BLOOD SUGAR RESULT OF 298. GAVE 12 UNITS OF REGULAR INSULIN PER SLIDING SCALE. WILL CONTINUE TO MONITOR THIS PATIENT.
[2017-11-01] MEDS: IPRATROPIUM NEB FS 0.5 MG/2.5 ML AMPUL.NEB NEB PRN (00:46)
[2017-11-01] MEDS: ACETYLCYSTEINE 10% SOLN 400 MG/4 ML VIAL NEB SCH ×3 (00:46→14:54)
[2017-11-01] MEDS: ALBUTEROL FS 2.5 MG/0.5 ML VIAL.NEB NEB PRN (00:46)
--- NOTE | 2017-11-01 01:00 | NUR ---
MD PHYSICIAN DERMATOLOGIST NOTE, PERFORMED ACCU CHECK ON PATIENT WITH A BLOOD SUGAR RESULT OF 220. GAVE 8 UNITS OF REGULAR INSULIN PER SLIDING SCALE. WILL CONTINUE TO MONITOR THIS PATIENT.
[2017-11-01] MEDS: BLOOD SUGAR DIAGNOSTIC 1 EACH STRIP IN SCH ×6 (01:10→22:00)
[2017-11-01] MEDS: INSULIN REGULAR, HUMAN 100 UNIT/ML 3 ML VIAL SQ PRN ×4 (01:14→22:10)
[2017-11-01] MEDS: MEROPENEM 500 MG in IV NS 0.9% 50 ML IV SCH ×2 (04:37→17:43)
--- NOTE | 2017-11-01 05:00 | NUR ---
SMOKE JUMPER SUPERVISOR NOTE, PERFORMED ACCU CHECK ON PATIENT WITH A BLOOD SUGAR RESULT OF 182. GAVE 4 UNITS OF REGULAR INSULIN PER SLIDING SCALE. WILL CONTINUE TO MONITOR THIS PATIENT.
--- NOTE | 2017-11-01 06:50 | NUR ---
EDGER SAW OPERATOR NOTE, PATIENT AWAKE AND IN BED, NO S/S OR COMPLAINTS OF PAIN AT THIS TIME. PATIENT BREATHING IS UNLABORED WITH EQUAL RISE AND FALL OF THE CHEST. PATIENT IS ALERT AND ORIENTED X 1 ON 15 LITERS OF O2 VIA NON REBREATHER WITH A SPOO2 98%. IVF NS @ 50 ML/HR INFUSING WELL INTO LEFT EJ 20 GAUGE THAT IS INTACT, PATENT, AND FLUSHING WELL WITH NO S/S OF INFILTRATION. PATIENT ASSISTED WITH TURNING AND REPOSITIONING Q2HR AND PRN FOR COMFORT AND CIRCULATION. ALL PATIENT NEEDS ANTICIPATED AND MET. PATIENT KEPT CLEAN, DRY, AND COMFORTABLE THROUGH OUT THE SHIFT. PATIENT BED SIDE RAILS UP X 2 FOR SAFETY. PATIENT BED IS LOCKED AND LOW WILL ENDORSE TO AM SHIFT NURSE FOR CONTINUATION OF CARE.
[2017-11-01 08:00] VITALS: BP 169/73
[2017-11-01] MEDS: BOOST GLUCOSE CONTROL VANILLA 237 ML BOX PO SCH ×2 (08:00→17:00)
--- NOTE | 2017-11-01 08:00 | NUR ---
MS RN NOTES PATIENT IN BED RESTING NO SOB OR ACUTE DISTRESS NOTED. PATIENT ON 15L NONE REBREATHER MASK SATURATING ABOVE 94%. PATIENT OPENS EYES TO TOUCH. ALERT, ORIENTED X1. PATIENT WITH PERIPHERAL IV INTACT PATENT. DANIELS CATH INTACT PATENT, DRAINING CLEAR YELLOW URIN. BED IN LOW LOCKED POSITION WILL CONTINUE TO MONITOR.
--- NOTE | 2017-11-01 08:00 | NUR ---
RT PT NOT IN ROOM AT THIS TIME WILL COME BACK AT ANOTHER TIME
[2017-11-01] MEDS: LACTOBACILLUS RHAMNOSUS GG 1 EACH CAP.SPRINK PO SCH ×2 (09:00→17:00)
[2017-11-01] MEDS: ASPIRIN 325 MG TABLET PO SCH (09:00)
[2017-11-01] MEDS: methylPREDNISolone SOD SUCC 125 MG/2ML VIAL IV SCH ×2 (09:23→17:31)
[2017-11-01] MEDS: HEPARIN SODIUM, PORCINE 5000 UNITS/1 ML VIAL SQ SCH ×2 (09:23→22:08)
[2017-11-01] MEDS: MUPIROCIN OINT 2% 22 GM TUBE SCH ×2 (09:30→22:00)
--- NOTE | 2017-11-01 11:00 | NUR ---
MS RN NOTES PER ST PATIENT TO BE KEPT NPO PER ST RECOMMENDATION PATIENT TO BE KEPT NPO.
[2017-11-01 12:37] LABS: CALCIUM, SERUM 9.6 mg/dL (8.5-10.1); CARBON DIOXIDE 35 mmol/L (21-32); CHLORIDE 109 mmol/L (98-107); CREATININE 0.7 mg/dL (0.6-1.3); GLUCOSE 148 mg/dL (74-106); POTASSIUM 3.6 mmol/L (3.5-5.1); SODIUM SERUM 149 mmol/L (136-145); UREA NITROGEN, BLOOD 36 mg/dL (7-18)
[2017-11-01 12:55] LABS: ALANINE AMINOTRANSFERASE 20 U/L (12-78); ALBUMIN 1.8 g/dL (3.4-5.0); ALKALINE PHOSPHATASE 86 U/L (46-116); ASPARTATE AMINOTRANSFERASE 23 U/L (15-37); BILIRUBIN,TOTAL 0.3 mg/dL (0.2-1.0); CALCIUM, SERUM 9.8 mg/dL (8.5-10.1); CARBON DIOXIDE 35 mmol/L (21-32); CHLORIDE 110 mmol/L (98-107); CREATININE 0.7 mg/dL (0.6-1.3); GLUCOSE 150 mg/dL (74-106); PHOSPHORUS 3.2 mg/dL (2.5-4.9); POTASSIUM 3.7 mmol/L (3.5-5.1); SODIUM SERUM 149 mmol/L (136-145); TOTAL PROTEIN, SERUM 6.7 g/dL (6.4-8.2); UREA NITROGEN, BLOOD 36 mg/dL (7-18)
[2017-11-01] MEDS: IV NS 0.9% 1,000 ML IV PRN (13:28)
--- NOTE | 2017-11-01 14:00 | NUR ---
MS RN NOTES PATIENT SEEN AND EVALUATED BY HOSPICE NURSE
[2017-11-01] MEDS ORDERED: LORA2ORA GT (15:32)
[2017-11-01] MEDS ORDERED: morphine PO (15:32)
[2017-11-01 16:00] VITALS: BP 139/64
[2017-11-01] MEDS: LORAZEPAM INJ 2 MG/ML VIAL IV PRN ×2 (16:07→22:19)
[2017-11-01] MEDS: LEVOFLOXACIN 750 MG /D5W 150ML 750 MG in PREMIX 1 EA IV SCH (16:10)
--- NOTE | 2017-11-01 18:15 | NUR ---
MS RN NOTES PATIENT IN BED RESTING NO SOB OR ACUTE DISTRESS NOTED. PATIENT KEPT COMFORTABLE. PATIENT WAS EVALUATED BY HOSPICE NURSE. WAITING FOR DISCHARGE PLACEMENT WITH HOSPICE. BED IN LOW LOCKED POSITION CALL LIGHT WITHIN REACH. WILL ENDORSE CARE TO PM SHIFT.
[2017-11-01] MEDS: VANCOMYCIN 1 GM in IV D5W 250 ML IV SCH (18:51)
--- NOTE | 2017-11-01 19:30 | NUR ---
RN OPENING NOTE; RECEIVED PT IN BED . ANXIOUS. ON NON-REBREATHER MASK AT 15LPM. BREATHING EVENLY. SKIN WARM AND DRY, F/C IN PLACE. DRAINING YELLOW URINE W. SEDIMENTS. L IG IV IN PLACE W/ ONGOING IVF.CALL LIGHT WITHIN REACH. WILL CONT TO MONITOR,
[2017-11-01 20:00] VITALS: BP 129/77
--- NOTE | 2017-11-01 22:19 | NUR ---
ATIVAN GIVEN ORDERED FOR ANXIETY AND AGITATION. WILL CONT TO MONITOR ,
[2017-11-02] MEDS: INSULIN REGULAR, HUMAN 100 UNIT/ML 3 ML VIAL SQ PRN ×2 (00:19→04:45)
[2017-11-02] MEDS: BLOOD SUGAR DIAGNOSTIC 1 EACH STRIP IN SCH ×3 (00:19→09:09)
[2017-11-02] MEDS: IPRATROPIUM NEB FS 0.5 MG/2.5 ML AMPUL.NEB NEB PRN ×2 (00:43→07:39)
[2017-11-02] MEDS: ACETYLCYSTEINE 10% SOLN 400 MG/4 ML VIAL NEB SCH ×2 (00:43→07:39)
[2017-11-02] MEDS: ALBUTEROL FS 2.5 MG/0.5 ML VIAL.NEB NEB PRN ×2 (00:43→07:39)
[2017-11-02] MEDS: IV NS 0.9% 1,000 ML IV PRN (02:22)
[2017-11-02] MEDS: LORAZEPAM INJ 2 MG/ML VIAL IV PRN ×2 (02:46→10:45)
--- NOTE | 2017-11-02 02:46 | NUR ---
ATIVAN GIVEN ORDERED FOR ANXIETY AND AGITATION. WILL CONT TO MONITOR ,
[2017-11-02] MEDS: MEROPENEM 500 MG in IV NS 0.9% 50 ML IV SCH (04:41)
[2017-11-02 06:41] LABS: CALCIUM, SERUM 9.4 mg/dL (8.5-10.1); CARBON DIOXIDE 34 mmol/L (21-32); CHLORIDE 114 mmol/L (98-107); CREATININE 0.7 mg/dL (0.6-1.3); GLUCOSE 128 mg/dL (74-106); POTASSIUM 3.7 mmol/L (3.5-5.1); SODIUM SERUM 152 mmol/L (136-145); UREA NITROGEN, BLOOD 36 mg/dL (7-18)
--- NOTE | 2017-11-02 06:48 | NUR ---
RN CLOSING NOTE; PT IN BED SLEEPING, AROUSES EASILY. BREATHING EVENLY. NO ACUTE EVENT DURING THE NIGHT, NO S/S OF PAIN OR DISCOMFORT AT THIS TIME.ON ONGOING IVF AND IV ATB. NEEDS ATTENDED . CLEANED AND DRIED. CALL LIGHT WITHIN REACH. WILL CONT TO MONITOR AND WILL ENDORSE TO AM SHIFT FOR ANDREY.
--- NOTE | 2017-11-02 07:30 | NUR ---
MS RN NOTES PATIENT RECEIVED AWAKE, ALERT TO SELF, VERBALLY RESPONSIVE AND RESPONDS TO VERBAL AND TACTILE STIMULI. NO SOB OR ACUTE DISTRESS NOTED. OXYGEN IN PLACE A 15L/MIN VIA NON-REBREATHER MASK. NO FACIAL GRIMACE OR ANY SIGNS OF DISCOMFORT NOTED AT THIS TIME. LEFT IJ IN PLACE, INTACT AND PATENT, NO BLEEDING, NO SWELLING, NO DISCOLORATION NOTED. BED LOCKED AND IN LOW POSITION, SIDE RAILS UP AND LOCKED. WILL CONTINUE TO MONITOR.
[2017-11-02 08:00] VITALS: BP 150/64
[2017-11-02] MEDS: BOOST GLUCOSE CONTROL VANILLA 237 ML BOX PO SCH (08:00)
[2017-11-02] MEDS: LACTOBACILLUS RHAMNOSUS GG 1 EACH CAP.SPRINK PO SCH (09:00)
[2017-11-02] MEDS: ASPIRIN 325 MG TABLET PO SCH (09:00)
--- NOTE | 2017-11-02 09:10 | NUR ---
MS RN NOTES FSBS OBTAINED WITH RESULT OF 72 MG/DL. PATIENT REMAINS AWAKE, ALERT TO SELF, AROUSABLE THROUGH VERBAL AND TACTILE STIMULI. NO SOB OR ACUTE DISTRESS NOTED. SKIN DRY AND WARM TO TOUCH. WILL CONTINUE TO MONITOR
[2017-11-02] MEDS: MUPIROCIN OINT 2% 22 GM TUBE SCH (09:40)
[2017-11-02] MEDS: HEPARIN SODIUM, PORCINE 5000 UNITS/1 ML VIAL SQ SCH (09:41)
[2017-11-02] MEDS: methylPREDNISolone SOD SUCC 125 MG/2ML VIAL IV SCH (09:41)
[2017-11-02 16:00] VITALS: BP 150/60
== END 2017-11-02 19:00 | DRG 720 ==
LOC: EDBD 15:39 → ER 15:39 → ICU 18:17 → TELE2 10-30 19:35 → MEDSG2 10-31 01:47
PROVIDERS: ADMIT Nurse Practitioner Acute Care; ATTEND Nurse Practitioner Acute Care
PROC: 5A09457 Assistance with Respiratory Ventilation, 24-96 Consecutive Hours, Continuous Positive Airway Pressure (ICD-10-PCS; principal; 2017-10-27)
DX: A41.9 Sepsis, unspecified organism (principal); J96.01 Acute respiratory failure with hypoxia; I21.A1 Myocardial infarction type 2; N17.0 Acute kidney failure with tubular necrosis; R65.21 Severe sepsis with septic shock; G93.41 Metabolic encephalopathy; J69.0 Pneumonitis due to inhalation of food and vomit; E43 Unspecified severe protein-calorie malnutrition; R13.10 Dysphagia, unspecified; I50.33 Acute on chronic diastolic (congestive) heart failure; Z66 Do not resuscitate; E87.5 Hyperkalemia; E78.5 Hyperlipidemia, unspecified; F03.90 Unspecified dementia, unspecified severity, without behavioral disturbance, psychotic disturbance, mood disturbance, and anxiety; K21.9 Gastro-esophageal reflux disease without esophagitis; Z88.0 Allergy status to penicillin; Z79.899 Other long term (current) drug therapy; Z79.84 Long term (current) use of oral hypoglycemic drugs; Z79.82 Long term (current) use of aspirin; Z51.5 Encounter for palliative care; F41.9 Anxiety disorder, unspecified; Z88.1 Allergy status to other antibiotic agents; F09 Unspecified mental disorder due to known physiological condition; E87.0 Hyperosmolality and hypernatremia; E86.0 Dehydration; K59.00 Constipation, unspecified; N39.0 Urinary tract infection, site not specified; D63.8 Anemia in other chronic diseases classified elsewhere
CPT/HCPCS: 36415; 36600; 71045-TC; 80048-TC; 80053-TC; 80076-TC; 80202-TC; 81000-TC; 82010-TC; 82728-TC; 82962-TC; 83540-TC; 83605-TC; 83735-TC; 83880; 84100-TC; 84484-TC; 85025-TC; 85730-TC; 87040-TC; 87081-TC; 87086-TC; 87186-TC; 87400; 92611-TC; 93307-TC; 94760-TC; 94799-TC; A4216; A4606; J0610; J1644; J1815; J1940; J1956; J2060; J2185; J2270; J2543; J2930; J3370; J3475; J7030; J7060; Z7610